=== PATIENT | female | born 1980 | race Caucasian/White ===

== ENCOUNTER 2017-10-19 09:23 | Outpatient (CLI) | payer OTHER ==
[~2017-10-19 09:23] MED LIST: IRON1 TAB PO; LAMICTAL200 M1 PO; PRENATAL CAPLE1 EACH PO
== END 2017-10-19 14:03 | disposition home or self-care (01) ==
LOC: TOM 09:23
DX: R10.2 Pelvic and perineal pain (principal)

== ENCOUNTER 2018-10-16 06:46 | Day surgery (SDC) | payer OTHER ==
[2018-10-16] MEDS ORDERED: PERCOCET 5-3251 EACH PO (12:00)
== END 2018-10-16 13:40 | disposition home or self-care (01) ==
LOC: CIR.AMB 06:46
DX: N70.11 Chronic salpingitis (principal); N73.6 Female pelvic peritoneal adhesions (postinfective)

== ENCOUNTER 2018-11-29 23:39 | Inpatient (IN) | payer OTHER ==
[~2018-11-29] VITALS: Ht 165.1 cm; Wt 61.7 kg
[~2018-11-29 23:39] MED LIST changes: +PERCOCET 5-3251 EACH PO
--- NOTE | 2018-11-30 | NUR ---
SE RECIBE PACIENTE ALERTA Y ORIENTADA X3 ACOMPANADA POR FAMILIAR CON LA QUEJA PRINCIPAL DE [employer] [facility] DESDE HOY EN LA MANANA.
--- NOTE | 2018-11-30 01:38 | NUR ---
SE ORIENTA PTE SOBRE TRATAMIENTO Y REFIERE ENTENDER. SE DERIK MUESTRAS DE [place]AUR[place] Y SE CANALIZA PERIFERALMENTE. SE REALIZA SONOGRAMA POR PERSONAL CORRESPONDIENTE. SE ADMINISTRAN MEDICAMENTOS ORDENADOS. PTE PENDIENTE A RE-EVALAUCION POR MEDICO DE TURNO. SE EVALUA POR CAMBIOS.
--- NOTE | 2018-11-30 08:39 | NUR ---
PACIENTE ALERTA EN CONSULTA CON SE OBSERVA CON IVF PATENTE DARION D ELIA ASE MANTIENE EN OBSERVACION PO RCAMBIO SEN LUNA CONDICON.
[2018-12-02] MEDS ORDERED: OSEL75CA PO (13:11)
== END 2018-12-02 14:04 | disposition home or self-care (01) | DRG 386 ==
LOC: ER 23:39 → MEDJ 11-30 10:16 → SURH 11-30 10:16
PROVIDERS: ADMIT Internal Medicine
PROC: BT43ZZZ Ultrasonography of Bilateral Kidneys (ICD-10-PCS; principal; 2018-11-30)
PROC: BW21ZZZ Computerized Tomography (CT Scan) of Abdomen and Pelvis (ICD-10-PCS; 2018-11-30)
DX: K51.80 Other ulcerative colitis without complications (principal); N39.0 Urinary tract infection, site not specified; E87.1 Hypo-osmolality and hyponatremia; N12 Tubulo-interstitial nephritis, not specified as acute or chronic; E86.0 Dehydration; Z87.19 Personal history of other diseases of the digestive system; Z87.39 Personal history of other diseases of the musculoskeletal system and connective tissue

== ENCOUNTER 2019-03-27 11:05 | Emergency (ER) | payer OTHER ==
[~2019-03-27] VITALS: Ht 165.1 cm; Wt 63.5 kg
[~2019-03-27 11:05] MED LIST changes: +OSEL75CA PO
[2019-03-27] MEDS ORDERED: PREDNISONE2.5 MG (11:34)
== END 2019-03-27 18:00 | disposition home or self-care (01) ==
LOC: ER 11:05
DX: K59.09 Other constipation (principal); R10.2 Pelvic and perineal pain; M54.5 Low back pain

== ENCOUNTER 2021-07-08 11:17 | Emergency (ER) | payer OTHER ==
[~2021-07-08] VITALS: Ht 165.1 cm; Wt 72.6 kg
[~2021-07-08 11:17] MED LIST changes: +PREDNISONE2.5 MG
[2021-07-08] MEDS ORDERED: COZAAR25 MG PO (12:04)
[2021-07-08] MEDS ORDERED: PLAQUENIL 200 (12:05)
[2021-07-08] MEDS ORDERED: NEURONTIN300 MG PO (12:05)
== END 2021-07-08 19:13 | disposition home or self-care (01) ==
LOC: ER 11:17
DX: K52.89 Other specified noninfective gastroenteritis and colitis (principal)

== ENCOUNTER 2021-09-16 08:00 | Outpatient (CLI) | payer OTHER ==
[~2021-09-16 08:00] MED LIST changes: +COZAAR25 MG PO; +NEURONTIN300 MG PO; +PLAQUENIL 200
== END 2021-09-16 08:30 | disposition home or self-care (01) ==
LOC: PPH VACUNA 08:00
PROVIDERS: ATTEND Emergency Medicine Pediatric Emergency Medicine
DX: Z23 Encounter for immunization (principal)

== ENCOUNTER 2022-01-05 12:36 | Inpatient (IN) | payer OTHER ==
[~2022-01-05] VITALS: Ht 165.1 cm; Wt 69.9 kg
[2022-01-06] MEDS ORDERED: PANTOPRAZOLE SO40 MG (08:44)
[2022-01-06] MEDS ORDERED: FOLIC ACID1 MG (08:44)
[2022-01-06] MEDS ORDERED: HYDROXYCHLOROQ200 MG (08:44)
== END 2022-01-14 16:46 | disposition home or self-care (01) | DRG 391 ==
LOC: ER 12:36 → MEDJ 23:39
PROVIDERS: ADMIT Internal Medicine; ATTEND Internal Medicine
PROC: BW21YZZ Computerized Tomography (CT Scan) of Abdomen and Pelvis using Other Contrast (ICD-10-PCS; 2022-01-05)
PROC: 0DBM8ZX Excision of Descending Colon, Via Natural or Artificial Opening Endoscopic, Diagnostic (ICD-10-PCS; principal; 2022-01-13)
PROC: 0DBL8ZX Excision of Transverse Colon, Via Natural or Artificial Opening Endoscopic, Diagnostic (ICD-10-PCS; 2022-01-13)
PROC: 0DBN8ZX Excision of Sigmoid Colon, Via Natural or Artificial Opening Endoscopic, Diagnostic (ICD-10-PCS; 2022-01-13)
PROC: 0DBP8ZX Excision of Rectum, Via Natural or Artificial Opening Endoscopic, Diagnostic (ICD-10-PCS; 2022-01-13)
DX: K52.89 Other specified noninfective gastroenteritis and colitis (principal); U07.1 COVID-19; R10.32 Left lower quadrant pain; J10.1 Influenza due to other identified influenza virus with other respiratory manifestations; Z87.39 Personal history of other diseases of the musculoskeletal system and connective tissue; I10 Essential (primary) hypertension

== ENCOUNTER 2023-06-11 15:29 | Emergency (ER) | payer OTHER ==
[~2023-06-11] VITALS: Ht 165.1 cm; Wt 67.1 kg
[~2023-06-11 15:29] MED LIST changes: +FOLIC ACID1 MG; +HYDROXYCHLOROQ200 MG; +PANTOPRAZOLE SO40 MG
[2023-06-11 17:59] LABS: HEMATOCRIT 34.3 % (36.0-45.00); HEMOGLOBIN 11.3 g/dL (12.0-15.00); MEAN CELL VOLUME 85.5 fL (80.00-100.00); MEAN CORPUSCULAR HEMOGLOBIN 28.2 pg (27.00-32.0); PLATELET COUNT 333 K/uL (150-450); RED BLOOD COUNT 4.01 M/uL (4.00-6.00); RED CELL DISTRIBUTION WIDTH 14.7 % (11.5-14.5)
[2023-06-11 18:30] LABS: CALCIUM 8.7 mg/dL (8.5-10.1); CREATININE SERUM 0.79 mg/dL (0.55-1.02); GFR 79.43; POTASSIUM 3.71 mEq/L (3.5-5.1)
[2023-06-11] MEDS ORDERED: MEDROLPACK PO (19:57)
[2023-06-11] MEDS ORDERED: PAXLOVID 300-11 EACH PO (19:57)
[2023-06-11] MEDS ORDERED: ZITHROMAX500 MG PO (19:57)
[2023-06-11] MEDS ORDERED: XOPENEX CO1.25 MG/0. IH (19:57)
== END 2023-06-11 21:02 | disposition home or self-care (01) ==
LOC: ER 15:29
PROVIDERS: Nurse Practitioner Family
DX: U07.1 COVID-19 (principal); J10.1 Influenza due to other identified influenza virus with other respiratory manifestations

== ENCOUNTER 2025-04-26 08:21 | Emergency (ER) | payer OTHER ==
[~2025-04-26] VITALS: Ht 165.1 cm; Wt 60.3 kg
[~2025-04-26 08:21] MED LIST changes: +MEDROLPACK PO; +PAXLOVID 300-11 EACH PO; +XOPENEX CO1.25 MG/0. IH; +ZITHROMAX500 MG PO
[2025-04-26] MEDS ORDERED: GUAIFEN/DEXTROMETHORPHAN/PE 10 ML BLIST.PACK PO ONE ×2 (10:00→10:07)
[2025-04-26 11:01] LABS: URINE APPEARANCE Cloudy; URINE BILIRRUBIN Negative (NEGATIVE); URINE BLOOD Negative; URINE COLOR Yellow; URINE GLUCOSE Negative (NEGATIVE); URINE KETONE Negative (NEGATIVE); URINE LEUKOCYTE Small; URINE NITRATE Negative; URINE PROTEIN Negative (NEGATIVE); URINE UROBILINOGEN 0.2 E.U./dl
[2025-04-26 11:02] LABS: URINE BACTERIA 1840.7 uL (0.0-1933); URINE EPITHELIAL CELLS 84.7 uL (0.0-38.8); URINE RBC 4.8 uL (0.0-20.8); URINE WBC 59.0 uL (0.0-23.2)
[2025-04-26 11:04] LABS: URINE CAST 0.43 uL (0.0-1.40)
[2025-04-26 11:22] LABS: COVID-19 AG NEGATIVE (NEGATIVE)
[2025-04-26 11:24] LABS: BASO % 0.1 % (0.1-1.2); EOS # 0.00 (0.04-0.54); EOS % 0.0 % (0.7-7.0); LYMPH # 0.58 (1.18-3.74); LYMPH % 3.7 % (19.3-53.1); MEAN PLATELET VOLUME 9.70 fl (9.4-12.4); MONO # 0.79 (0.24-0.82); MONO % 5.0 % (4.7-12.5); NEUT # 14.39 (1.56-6.13); NEUT % 90.5 % (34.0-71.1); RED CELL DISTRIBUTION WIDTH 13.7 % (11.6-14.4)
[2025-04-26 11:46] LABS: ALT/SGPT 24.0 U/L (12-78); AST/SGOT 20.0 U/L (15-37); BILIRUBIN TOTAL 0.35 mg/dL (0.3-1.2); BUN CREA RATIO 8.0 (7.0-25.0); CREATININE SERUM 1.02 mg/dL (0.55-1.02); GFR 58.6; GLOBULINA 6.2 G/DL (2.4-3.5); GLUCOSE FASTING 154.0 mg/dL (65-100); OSMOLALITY SERUM 277.0 MOSM/KG (275-295)
[2025-04-26] MEDS ORDERED: OSELTAMIVIR PHOSPHATE 75 MG CAPSULE PO ONE ×2 (12:30→13:15)
[2025-04-26] MEDS ORDERED: AZITHROMYCIN 500 MG VIAL IV ONE ×2 (12:30→13:15)
== END 2025-04-26 18:16 | disposition home or self-care (01) ==
LOC: ER 08:21
PROVIDERS: Emergency Medicine
DX: J10.1 Influenza due to other identified influenza virus with other respiratory manifestations (principal); K52.9 Noninfective gastroenteritis and colitis, unspecified; J40 Bronchitis, not specified as acute or chronic; R10.9 Unspecified abdominal pain; Z20.822 Contact with and (suspected) exposure to COVID-19; Z88.2 Allergy status to sulfonamides; Z88.8 Allergy status to other drugs, medicaments and biological substances